=== PATIENT | female | born 1980 | race Asian ===

== ENCOUNTER 2017-11-09 17:37 | Emergency (ER) | payer OTHER ==
[~2017-11-09] VITALS: Ht 162.6 cm; Wt 75.1 kg
[2017-11-09 17:41] VITALS: Ht 162.6 cm; Wt 75.1 kg
[2017-11-09] MEDS ORDERED: CEPH-443 PO (19:08)
[2017-11-09] MEDS ORDERED: IBUP-1542 PO (19:08)
--- NOTE | 2017-11-09 19:11 | ERD ---
ER Documentation Chief Complaint Chief Complaint mouth sore x 1 day HPI This 37-year-old female complains of some pain in the right upper dental area near the gum for last 2 days. She denies any history of trauma, recent illnesses, fevers, difficulty swallowing, difficulty breathing. Patient has not had a dental visit in some time. ROS All systems reviewed and are negative except as per history of present illness. Medications Home Meds Active Scripts Ibuprofen* (Motrin*) 600 Mg Tab, 600 MG PO Q6, #20 TAB Prov:JENN HENDRIX MD 11/09/17 Cephalexin* (Keflex*) 500 Mg Capsule, 500 MG PO QID for 10 Days, CAP Prov:JENN HENDRIX MD 11/09/17 PMhx/Soc Medical and Surgical Hx: pt denies Medical Hx, pt denies Surgical Hx Hx Alcohol Use: No Hx Substance Use: No Hx Tobacco Use: No Physical Exam Vitals Vital Signs Date Time Temp Pulse Resp B/P Pulse Ox O2 Delivery O2 Flow Rate FiO2 11/09/17 17:41 97.1 89 18 132/76 99 Physical Exam Const: [], [id number]. Head: Atraumatic Eyes: Normal Conjunctiva ENT: Normal External Ears, Nose and Mouth. Right upper posterior molar has some 1 cm swelling and fluctuance at the base of the tooth at the gumline. There is no significant erythema no facial swelling or induration. Airways patent. Neck: Full range of motion..~ No meningismus. Resp: Clear to auscultation bilaterally Cardio: Regular rate and rhythm, no murmurs Abd: Soft, non tender, non distended. Normal bowel sounds Skin: No petechiae or rashes Back: No midline or flank tenderness Ext: No cyanosis, or edema Neur: Awake and alert Psych: Normal Mood and Affect Procedures/MDM She presents with signs of an abscess at that gumline at the right upper posterior molar. She has no evidence of sepsis, facial cellulitis, airway obstruction,. She will be treated with Keflex, ibuprofen, and a dental visit this week. Patient has a dental follow-up pending this week she is unable to get in today. She should return for fevers, difficulty swallowing difficulty breathing, new worsening symptoms or primary care doctor and dentist as directed. Departure Diagnosis: Primary Impression: Dental abscess Condition: Stable Patient Instructions: Dental Abscess Additional Instructions: See dentist for follow-up this week. Recheck otherwise for any worsening symptoms have not fevers, shortness of breath, difficulty swallowing or breathing. JENN HENDRIX MD Nov 09, 2017 19:11
== END 2017-11-09 19:23 | disposition home or self-care (01) ==
LOC: FTE 17:37
DX: K04.7 Periapical abscess without sinus (principal)
CPT/HCPCS: 99283